=== PATIENT | female | born 1965 | race Caucasian/White ===

== ENCOUNTER 2020-08-20 10:13 | Outpatient (RCR) | payer OTHER ==
[~2020-08-20 10:13] MED LIST: PRINIVIL20 MG PO
== END 2020-08-31 ==
LOC: ST 10:13
PROVIDERS: ATTEND Psychiatry & Neurology Clinical Neurophysiology
DX: R47.01 Aphasia (principal)
CPT/HCPCS: 92523

== ENCOUNTER 2020-09-22 10:00 | Outpatient (RCR) | payer OTHER | END 2020-09-28 | LOC: ST 10:00 | PROVIDERS: ATTEND Psychiatry & Neurology Clinical Neurophysiology | DX: I69.320 Aphasia following cerebral infarction (principal); I10 Essential (primary) hypertension; F41.9 Anxiety disorder, unspecified; F32.9 Major depressive disorder, single episode, unspecified ==

== ENCOUNTER 2020-10-06 10:00 | Outpatient (RCR) | payer OTHER | END 2020-10-29 | LOC: ST 10:00 | PROVIDERS: ATTEND Psychiatry & Neurology Clinical Neurophysiology | DX: R47.01 Aphasia (principal) ==